=== PATIENT | female | born 1980 | race American Indian/Alaskan Native ===

== ENCOUNTER 2020-06-13 11:31 | Observation (INO) | payer BC ==
[2020-06-11 10:42] LABS: Basophils # (Auto) 0.1 K/mm3 (0.0-0.1); Eosinophils # (Auto) 0.2 K/mm3 (0.0-0.4); Eosinophils % (Auto) 2.9 % (0.0-4.3); Hematocrit 35.2 % (30.3-42.9); Hemoglobin 12.1 gm/dl (10.1-14.3); Lymphocytes # (Auto) 1.9 K/mm3 (1.2-5.4); Lymphocytes % (Auto) 30.6 % (13.4-35.0); Mean Corpuscular HGB Conc 34 % (30-34); Mean Corpuscular Volume 88 fl (79-97); Monocytes # (Auto) 0.4 K/mm3 (0.0-0.8); Monocytes % (Auto) 6.8 % (0.0-7.3); Platelet Count 319 K/mm3 (140-440); Red Cell Distribution Width 14.2 % (13.2-15.2)
[2020-06-11 11:17] LABS: BUN/Creatinine Ratio 18; Blood Urea Nitrogen 14 mg/dL (7-17); Calcium 9.2 mg/dL (8.4-10.2); Hemolysis Index 29
--- NOTE | 2020-06-11 11:52 | Anesthesia Consultation ---
Anesthesia Consult and Med Hx Date of service: 06/13/20 - Airway Anesthetic Teeth Evaluation: Poor (LOOSE TEETH) ROM Head & Neck: Adequate Mental/Hyoid Distance: Adequate Mallampati Class: Class II Intubation Access Assessment: Good - Pre-Operative Health Status ASA Pre-Surgery Classification: ASA2 Proposed Anesthetic Plan: General Nerve Block: TAP - Pulmonary Hx Smoking: No Hx Respiratory Symptoms: No (+2FS) Hx Sleep Apnea: No (ASIA PRE SCREEN NEGATIVE) - Cardiovascular System Hx Hypertension: No - Central Nervous System Hx Psychiatric Problems: No - Gastrointestinal Hx Gastroesophageal Reflux Disease: No - Endocrine Hx Renal Disease: No Hx Insulin Dependent Diabetes: No Hx Thyroid Disease: No - Hematic Hx Anemia: No Hx Sickle Cell Disease: No - Other Systems Hx Cancer: No Hx Obesity: Yes
--- NOTE | 2020-06-12 08:34 | History and Physical Report ---
History of Present Illness Date of examination: 06/03/20 History of present illness: Patient has been reassessed/reevaluated. H&P has been reviewed. No interval changes. This is a 39 years old female who presents with menorrhagia, metrorrhagia anddysmenorrhea. Patient denies dyspareunia, post-coital bleeding, abnormal periods, pelvic pain, abnormal vaginal discharge, breast mass or lumps, depression, anxiety, urinary symptoms, chest pain, palpitations, shortness of breath, leg swelling, back pain, abdominal pain, headaches and bowel problems. The patient notes that she is sexually active and does not use contraception. The symptoms began 4-6 months ago. Patient complains of spotting before and after menses. She complains of irregular menses, mid-cycle spotting, dysmenorrhea, history of fibroids and cramping, but denies heavy bleeding, lack of menses, clotting, history of ovarian cysts, history of thyroid disease, history of PCOS, history of bleeding disorder, lightheadedness and fatigue. Interval between menses is 28 days and > 30 days. Menstrual flow lasts 5 days and > 7 days. Patient's work up has included hysterosonogram with a benign endometrial biopsy and revealed leiomyomas and an endometrial polyp. Patient's symptoms when present disrupts her normal daily activities Patient desires definitive treatment Vital Signs: Patient Profile: 39 Years Old Female LMP: 05/10/2020 Height: 63 inches Weight: 183 pounds BMI: 32.41 Temp: 97.8 degrees F BP sittin / 70 (left arm) Menstrual History: LMP (date): 05/10/2020 Current Method of Contraception: None Date of Last Pap Smear: 04/29/2020 Past History : 0 Term Births: 0 Premature Births: 0 Living Children: 0 Para: 0 Mult. Births: 0 Prev : 0 Aborta: 0 Elect. Ab: 0 Spont. Ab: 0 Ectopics: 0 [employer] History Operations: Negative Past Surgical History Abnormal PAP: negative Uterine Anomaly: positive fibroids Infection History HIV Risk Eval: no Personal hx. of genital herpes: yes Hx of STD: HSV Current Allergies (reviewed today): No known allergies Past Medical History: Fibroids Past Surgical History: Negative Past Surgical History Family History Summary: Other Family Member - Has No Family History of Ovarvian Cancer - Entered On: 04/29/2020 Other Family Member - Has No Family History of Colon Cancer - Entered On: 04/29/2020 Other Family Member - Has No Family History of Breast Cancer - Entered On: 04/29/2020 Other Family Member - Has Family History of Hypertension - Entered On: 04/29/2020 Social History: Marital Status: Children: 0 Occupation: Collections Smoking History: Patient has never smoked. Risk Factors: Smoked Tobacco Use: Never smoker Smokeless Tobacco Use: Never Passive smoke exposure: no Drug use: no HIV high-risk behavior: no Caffeine use: 1 drinks per day Alcohol use: yes Type: occ Exercise: no Seatbelt use: 100 % PAP Smear History: Date of Last PAP Smear: 04/29/2020 Review of Systems General Complains of fatigue. Denies fever, chills, sweats, anorexia, weakness, malaise, weight loss and sleep disorder. Complains of menorrhagia, abnormal vaginal bleeding, pelvic pain and painful periods. Denies vaginal discharge, incontinence, dysuria, hematuria, urinary frequency, amenorrhea, genital sores, decreased libido, urinary urgency, hot flashes, vaginal dryness, vaginal itching and vaginal odor. CV Denies chest pains, palpitations, syncope, dyspnea on exertion, orthopnea, PND and peripheral edema. Resp Denies cough, dyspnea at rest, excessive sputum, hemoptysis, wheezing and pleurisy. GI Denies nausea, vomiting, diarrhea, constipation, change in bowel habits, abdominal pain, melena, hematochezia, jaundice, gas/bloating, indigestion/heartburn, dysphagia and odynophagia. Breast Denies left breast lump, right breast lump, nipple discharge, bloody di scharge from nipple, breast pain, abnormal mammogram and breast enlargement. Psych Denies depression, anxiety, irritability and mood swings. Past History Past Medical History: other (SEE HPI FOR DETAILS) Past Surgical History: Other (SEE HPI FOR DETAILS) Social history: full code, other (SEE HPI FOR DETAILS) Family history: other (SEE HPI FOR DETAILS) Medications and Allergies Allergies Allergy/AdvReac Type Severity Reaction Status Date / Time No Known Allergies Allergy Verified 06/05/20 17:44 Home Medications Medication Instructions Recorded Confirmed Last Taken Type No Known Home Medications [No 06/05/20 06/05/20 Unknown History Reported Home Medications] Active Meds: Active Medications Acetaminophen (Acetaminophen 500 Mg Tab) 1,000 mg PO ONCE NR Stop: 06/13/20 23:00 Celecoxib (Celecoxib 200 Mg Cap) 400 mg PO PREOP NR Stop: 06/13/20 23:00 Fentanyl (Fentanyl 100 Mcg/2 Ml Inj) 100 mcg IV ONCE NR Stop: 06/13/20 23:00 Gabapentin (Gabapentin 300 Mg Cap) 600 mg PO PREOP NR Stop: 06/13/20 06:01 Lactated Ringer's (Lactated Ringers) 1,000 mls @ 125 mls/hr IV DIRECT ANDREZ Magnesium Oxide (Magnesium Oxide 400 Mg Tab) 400 mg PO ONCE NR Stop: 06/13/20 23:00 Midazolam HCl (Midazolam 2 Mg/2 Ml Inj) 2 mg IV PREOP NR Stop: 06/13/20 23:59 Review of Systems Constitutional: other (SEE HPI FOR DETAILS) Exam - Physical Exam Narrative exam: HEENT: normocephalic, no lesions or deformities increased hair growth Skin no significant abnormal lesions or rashes increased hair growth Chest: respiratory effort normal, clear to auscultation CV: regular, normal S1-S2, no murmur, no rub, no gallop Abdomen: normal bowel sounds, soft, nontender, no HSM increased hair growth Neuro: no gross anomalities Extremities: no clubbing, cyanosis, or edema increased hair growth [employer] Exams Vulva/Vagina: normal appearance, clear discharge, lesions. No evidence of cystocele or rectocele. Cervix: No lesions; no cervical motion tenderness Uterus: enlarged uterus 8 - 10 weeks size Adnexae: no masses or tenderness Rectovaginal: exam defered Results - Labs CBC & Chem 7: 06/11/20 09:55 06/11/20 09:55 Labs: Abnormal lab results 06/11/20 Range/Units 09:55 Glucose 102 H (65-100) mg/dL Assessment and Plan - Patient Problems (1) Intramural leiomyoma of uterus Status: Acute Plan to address problem: Diagnosis explained to patient. Possible etiology of her menometrorrhagia and dysmenorrhea. Questions answered. Discussed with patient various medical, surgical and radiological therapies common for treatment including expectant management, myomectomy hysterectomy and uterine artery embolization Patient desires to retain future fertility. She desires myomectomy. Discussed risks and benefits of laparotomy and robotic assisted approaches Patient desires robotic assisted myomectomy. Discuss the risks of the surgery including infection, bleeding possibly heavy enough to require a blood transfusion, possible damage to bowel, bladder or ureter. Patient understands that there is a possibility that a hysterectomy maybe indicated for severe bleeding not resoved with conservative measures.Patient advised the small risks of spreading of malignancy if morcellator is used during the surgery patient understands and approve of use if necessary. All her questions were answered. Patient understands and desires to proceed. (2) Dysmenorrhea Status: Acute Plan to address problem: Probably secondary to her myomas. (3) Endometrial polyp Status: Acute Plan to address problem: Diagnosis explained to patient. Also probable etiology of her menometorrhagia. Hysteroscopic surgical treatment options discussed as the least invasive surgical option. Questions answered. Patient desires myomectomy along polyp removal. (4) Menometrorrhagia Status: Acute Plan to address problem: Probably secondary to her myomas or endometrial polyp
--- NOTE | 2020-06-13 07:12 | Anesthesia Day of Surgery ---
Anesthesia Day of Surgery - Day of Surgery Patient Examined: Yes Patient H&P Reviewed: Yes Patient is NPO: Yes
[2020-06-13] MEDS: HYDROmorphone 1 MG/1 ML INJ IV PRN ×2 (11:29→11:47)
--- NOTE | 2020-06-13 11:30 | Operative Report ---
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 Patient with large anterior lower uterine segment myoma approximately about 8 cm in diameter smaller fundal anterior myoma about 3-4 cm patient had adhesions both adnexa and bilateral hydrosalpinx with a normal-appearing ovary on her right with the cystic-ap pearing ovary in the left there was also adhesed to her colon on her left. There was no flow of dye seen through fallopian tubes with chromotubation. Specimen(s): Leiomyomata and uterine serosa Procedure: Patient taken operating room where general endotracheal anesthesia was induced difficulty. She was placed in dorsal lithotomy position prepped and draped in usual normal sterile fashion for robotic procedure. The Jackson catheter was placed in urinary bladder without difficulty speculum placed in the vagina. Tenaculum was placed at 12:00 on the cervix. The cervical os was dilated to a 1 9 [place] diameter. The hysteroscope was placed and the findings noted above. The MyoSure device was primed. The device was placed through the cervical os. The mass was then removed using the MyoSure. The mass was completely removed with no evidence of puncture on the uterine wall. All instruments were then removed. A medium [facility] care uterine manipulator was placed without any difficulty. Then attention was switched to the patient's abdomen. Supra-umbilical incision was made with a knife. Spread with a hemostat. A 10-12 Trocar was placed in this incision while lifting out anterior abdominal wall under direct visualization. Intra-abdominal cavity was entered without any evidence of internal organ damage. Patient was insufflated approximately 3 and a half liters of CO2 gas. Patient's pelvic findings noted above. The patient was perceived to be a candidate for robotic procedure. Three 8 mm robotic instrument trocars were placed. One on either side of the midline camera trocar approximately 8 cm from the midline and a third in the left lower quadrant approximately 2 fingerbreadths above the iliac crest. The trocars were placed under direct visualization with no signs of internal organ damage. An preschool assistant teacher port was placed in the right lower quadrant 2 fingerbreadths above the iliac crest under direct visualization without any evidence of internal organ damage, this was a 10-12 trocar. Jose L Hernandez fascia closure systems were placed in both the right lower quadrant trocar position and the midline trocar camera position. The patient was then placed in severe Trendelenburg position. At this time the da Paula robot was docked on the patient's left side and robotic trocars were connected and robotic instruments placed in the normal fashion. At that time I my place under the operating mart. Adhesions around both adnexa were taken down to try to reapproximate normal anatomical positions. Both fallopian tubes were dilated the right tube with a visible blunted end.the left ovary was draining clear fluid. Left tube also visibly dilated. Pitressin was injected in the myometrium under the myomas it was seen also injected into the serosa overlying the myomas. A midline incision was made from anterior through the fundus with the robotic scissors. The myomas were removed both sharply and bluntly with cautery through this an incision versus the large anterior cervical myomas were removed during this removal of the endometrial cavity was entered. The fundal myoma was also removed through this incision. The resultant defect was closed in layers with 0 Vicryl, with care not to compromise the endometrial cavity. Excess serosa was removed from the large myoma removal site. The uterine serosa was then closed with a baseball stitch. Closed with good hemostasis. Attention was then switched to removal of the myomas out of the cavity. Morcellator was then placed in to the preschool assistant teacher port. Both myomas were removed using the morcellator. Dispersed pieces of the myoma were retrieved and removed through the port. Patient's pelvis was copiously irrigated and suction good hemostasis. At this time did not object methylene blue through the V care but no evidence of dye present in either of her fallopian tubes. Geeta was then placed over the operative site. Interceed was placed over the uterine incision. All instruments were removed. The da Paula device was undocked. Trocar sites were closed in layers using the Jose L Hernandez closure for the fascia and the skin was reapproximated with 4-0 Monocryl. And covered with Dermabond. Patient tolerated procedure well. The patient was awakened in operating room and accompanied to the recovery room in good condition.
[~2020-06-13 11:31] MED LIST: ACETAMINOPHEN 500 MG TAB PO NR; BUPIVACAINE/PF (0.25%) 2.5 MG/ML 30 ML VIAL INFILTRATI ONE; CELECOXIB 200 MG CAP PO NR; CITRIC ACID-SOD CITRATE 500 ML IV ONE; GABAPENTIN 300 MG CAP PO NR; GLYCOPYRROLATE 0.4 MG/2 ML INJ ONE; HYDROmorphone 1 MG/1 ML INJ IV PRN; HYDROmorphone 1 MG/1 ML INJ ONE; KETOROLAC 30 MG/1 ML INJ ONE; LACTATED RINGERS 1,000 ML IV SCH; LACTATED RINGERS 1,000 ML ONE; LIDOCAINE (1%) 10 MG/1 ML VIAL 20 ML MDV ONE; LIDOCAINE MPF (2%) 20 MG/1 ML VIAL 5 ML ONE; MAGNESIUM OXIDE 400 MG TAB PO NR; METHYLENE BLUE 50 MG/10 ML AMP IRRIGATION ONE; METHYLENE BLUE 50 MG/10 ML AMP ONE; MIDAZOLAM 2 MG/2 ML INJ IV NR; NEOSTIGMINE 10MG/10 ML INJ MDV ONE; ONDANSETRON 4 MG/2 ML INJ IV PRN; ONDANSETRON 4 MG/2 ML INJ ONE; PHENYLEPHRINE/NS 1,000 MCG/10 ML SYRINGE (OR USE) IV ONE; ROCURONIUM 50 MG/5 ML INJ IV ONE; SODIUM CHLORIDE 0.9% 100 ML IVPB IV ONE; SODIUM CHLORIDE 0.9% 100 ML ONE; SODIUM CHLORIDE 0.9% IRR 1,500 ML BOTTLE IR ONE; SODIUM CHLORIDE 0.9% IRRIG SOLN 2000 ML IR ONE; VASOPRESSIN 20 UNIT/1 ML INJ IM ONE; VASOPRESSIN 20 UNIT/1 ML INJ ONE; ceFAZolin/STERILE WATER 2 GM/20 ML SYRINGE IV NR; dexAMETHasone 20 MG/5 ML VIAL ONE; fentaNYL 100 MCG/2 ML INJ IV NR; propofoL 200 MG/20 ML VIAL IV ONE
[2020-06-13] MEDS ORDERED: KETOROLAC 30 MG/1 ML INJ IV SCH (14:37)
[2020-06-13] MEDS ORDERED: ACETAMINOPHEN 325 MG TAB PO PRN (14:37)
[2020-06-13] MEDS ORDERED: D5W/LACTATED RINGERS 1,000 ML IV SCH (14:37)
[2020-06-13] MEDS ORDERED: HYDROcodone/ACETAMINOPHEN 5-325 MG TAB PO PRN (14:37)
[2020-06-13] MEDS ORDERED: MAGNESIUM HYDROXIDE (MOM) ORAL LIQD UDC PO PRN (14:37)
--- NOTE | 2020-06-13 14:57 | Post Anesthesia Evaluation ---
- Post Anesthesia Evaluation Patient Participated: Yes Airway Patent: Yes Stable Respiratory Function: Yes Nausea/Vomiting: No Temp > 96.8F: Yes Pain Manageable: Yes Adequeate Hydration: Yes Anesthesia Complications: No Block Receding Appropriately: Not Applicable Patient on Ventilator: No
[2020-06-13] MEDS ORDERED: ceFAZolin/NS 1 GM/50 ML 1 GM/50 ML BAG IV SCH (16:00)
[2020-06-13 16:19] LABS: Hematocrit 36.5 % (30.3-42.9); Hemoglobin 12.1 gm/dl (10.1-14.3)
[2020-06-13 16:49] VITALS: BP 115/78
--- NOTE | 2020-06-13 17:14 | Short Stay Summary ---
Short Stay Documentation Date of service: 06/13/20 - History H&P: dictated Past Medical History: other (SEE HPI FOR DETAILS) Past Surgical History: Other (SEE HPI FOR DETAILS) Social history: full code, other (SEE HPI FOR DETAILS) - Allergies and Medications Current Medications: Allergies No Known Allergies Allergy (Verified 06/05/20 17:44) Home Medications Medication Instructions Recorded Confirmed Last Taken Type Ibuprofen [Motrin 800 MG tab] 800 mg PO Q6H PRN #30 tablet 06/13/20 Unknown Rx oxyCODONE /ACETAMINOPHEN [Percocet 1 - 2 tab PO Q6HR PRN #20 tablet 06/13/20 Unknown Rx 5/325 mg] Active Medications Acetaminophen (Acetaminophen 325 Mg Tab) 650 mg PO Q4H PRN PRN Reason: Pain MILD(1-3)/Fever >100.5/NUÑEZ Hydrocodone Bitart/Acetaminophen (Hydrocodone/Acetaminophen 5-325 Mg Tab) 2 each PO Q6H PRN PRN Reason: Pain, Moderate (4-6) Docusate Sodium (Docusate Sodium 100 Mg Cap) 100 mg PO BID [facility] Dextrose/Lactated Ringer's (D5lr) 1,000 mls @ 125 mls/hr IV DIRECT ANDREZ Cefazolin Sodium (Ancef/Ns 1 Gm/50 Ml) 1 gm in 50 mls @ 100 mls/hr IV Q8H [facility]; Protocol Stop: 06/14/20 00:29 Last Admin: 06/13/20 15:38 Dose: 100 mls/hr Documented by: Ibuprofen (Ibuprofen 800 Mg Tab) 800 mg PO Q8H PRN PRN Reason: Pain, Mild (1-3) Ketorolac Tromethamine (Ketorolac 30 Mg/1 Ml Inj) 30 mg IV Q6H [facility] Stop: 06/18/20 14:36 Last Admin: 06/13/20 15:44 Dose: 30 mg Documented by: Magnesium Hydroxide (Magnesium Hydroxide (Mom) Oral Liqd Udc) 30 ml PO Q4H PRN PRN Reason: Constipation - Physical exam General appearance: no acute distress, well-nourished Integumentary: no rash HEENT: Atraumatic Lungs: Normal air movement Breasts: deferred Heart: Regular rate Gastrointestinal: tenderness (Appropriate for day of surgery), distended (Slightly distended compatible with recent robotic surgery), organomegaly, obese, other (Incisions healing well with no evidence of infection) Rectal Exam: deferred Extremities: no ischemia, pulses intact Neurological: Normal speech, Normal tone, Sensation intact - Brief post op/procedure progress note Date of procedure: 06/13/20 (See dictated operative note for details) - Hospital course Hospital course: Patient was admitted underwent the above him procedure without any complications. Her post operative extended recovery observation course was benign she was afebrile throughout. Patient had no orthostatic symptoms. Her hematocrit was 36.5% approximately 4 hours postoperatively. Patient was tolerating regular diet and voiding without difficulty at time of discharge. Patient incision was healing well without evidence of infection. Patient will be discharged with follow-up in office in 1-2 weeks for postop check - Disposition Condition at discharge: Good Disposition: DC-01 TO HOME OR SELFCARE - Discharge Diagnoses (1) Intramural leiomyoma of uterus Status: Acute (2) Dysmenorrhea Status: Acute (3) Endometrial polyp Status: Acute (4) Menometrorrhagia Status: Acute Short Stay Discharge Plan Activity: advance as tolerated Diet: regular Wound: open to air Additional Instructions: Patient instructed no heavy lifting for 4 weeks. No intercourse. Call office for fever, chills, nausea, vomiting or pain not controlled by pain medications. Ambulation is encouraged. Patient's call for heavy vaginal bleeding. Patient is presently on her menses. Patient instructed to keep her scheduled post operative office appointment. Follow up with: PRIMARY CARE, [Primary Care Provider] - 7 Days Forms: [facility] Discharge Summary Prescriptions: Ibuprofen [Motrin 800 MG tab] 800 mg PO Q6H PRN #30 tablet PRN Reason: Pain oxyCODONE /ACETAMINOPHEN [Percocet 5/325 mg] 1 - 2 tab PO Q6HR PRN #20 tablet PRN Reason: Pain
[2020-06-13] MEDS ORDERED: DOCUSATE SODIUM 100 MG CAP PO SCH (22:00)
[2020-06-14] MEDS ORDERED: IBUPROFEN 800 MG TAB PO PRN (11:31)
== END 2020-06-13 17:30 | disposition home or self-care (01) ==
LOC: OR 11:31 → OB 11:32
PROVIDERS: ADMIT Obstetrics & Gynecology; ATTEND Obstetrics & Gynecology
DX: D25.1 Intramural leiomyoma of uterus (principal); N92.1 Excessive and frequent menstruation with irregular cycle; N94.6 Dysmenorrhea, unspecified; N84.0 Polyp of corpus uteri; N70.11 Chronic salpingitis; Z98.890 Other specified postprocedural states; Z79.899 Other long term (current) drug therapy
CPT/HCPCS: 36415; 58350; 58545; 58558; 64450; 80048; 84703; 85014; 85018; 85025; 86850; 86900; 86901; 88305; 96365; 96375; A4217; C1765; C1782; G0378; J0690; J1100; J1170; J1885; J2250; J2370; J2405; J2704; J2710; J3010; J7120; Q9968; S2900